=== PATIENT | male | born 1980 | race Caucasian/White ===

== ENCOUNTER → 2017-10-24 16:17 | Outpatient (CLI) | payer OTHER, SELFPAY ==
--- NOTE | 2017-10-24 16:22 | DI.RAD.S_ITS ---
PROCEDURE: XR CERVICAL SPINE 4V OR 5V INDICATIONS: Cervical spondylosis TECHNIQUE: 5 views of the cervical spine acquired. COMPARISON: None. FINDINGS: Bones: No fractures or dislocations to the T1 level. Oblique images demonstrate mild left C4-C5 and C5-C6 foraminal narrowing. Moderate C5-C6 degenerative changes noted. Mild C6-C7 degenerative changes. Mild bilateral C4-C5 uncovertebral joint hypertrophy. Moderate bilateral C5-C6 uncovertebral joint hypertrophy. Soft tissues: No prevertebral soft tissue swelling. IMPRESSION: 1. C5-C6 and C6-C7 degenerative disc disease. 2. C4-C5 and C5-C6 uncovertebral joint hypertrophy. Dictated by: Teresa Beckford MD, PhD on 10/24/2017 at 18:00 Approved by: Teresa Beckford MD, PhD on 10/24/2017 at 18:02
== END ==
PROVIDERS: PCP Family Medicine; Visit Provider Physical Medicine & Rehabilitation
DX: M47.812 Spondylosis without myelopathy or radiculopathy, cervical region (principal); M50.322 Other cervical disc degeneration at C5-C6 level
CPT/HCPCS: 72050

== ENCOUNTER 2017-12-24 07:23 | Outpatient (CLI) | payer OTHER, SELFPAY ==
[2017-12-24] VITALS (8 sets, daily range): BP systolic 123–153; BP diastolic 76–96; PULSE 67–76; RESP 16–18; TEMP 36.1; O2SAT 96–99
--- NOTE | 2017-12-24 07:24 | DI.RAD.S_ITS ---
PROCEDURE: PAIN C/T FACET INJ/BLK 1ST L INDICATIONS: Cervical spondylosis FINDINGS: Fluoroscopic spot filming was performed to verify placement of spinal needles at the right C5-C6 and C6-C7 level(s), as labeled on the films. Appropriate location(s) of the needle tip(s) was confirmed by injection of iodinated contrast. Dictated by: Andry Parker M.D. on 12/24/2017 at 14:27 Approved by: Andry Parker M.D. on 12/24/2017 at 14:28
--- NOTE | 2017-12-24 08:11 | PM.PROC.1 ---
Procedures Date/Time Date of procedure: 12/24/17 Time of procedure: 08:48 General Procedure description: PREOP DIAGNOSIS 1. FACET ARTHROPATHY 2. AXIAL NECK PAIN POST OP DIAGNOSIS 1. FACET ARTHROPATHY 2. AXIAL NECK PAIN PROCEDURES 1. FLUOROSCOPICALLY GUIDED, CONTRAST-CONTROLLED RIGHT C5/6 AND C6/7 FACET JOINT INJECTIONS WITH CONSCIOUS SEDATION. PHYSICIAN: DO JAYCEE Sandoval Brittany is referred by Dr. Buckley for treatment of Axial Neck Pain DESCRIPTION OF PROCEDURE Fluoroscopically guided, contrast-controlled right C5/6 and C6/7 facet joint injections with conscious sedation. Following denial of allergy and review of potential side effects and complications, including, but not necessarily limited to, infection, allergic reaction, local tissue breakdown, stroke, temporary or permanent nerve injury and paralysis, the patient indicated that the patient understood and agreed to proceed. An informed consent document was signed by the patient, witnessed by a nurse, and placed in the patient's chart. Additionally, other treatment options including medications, modalities, and physical therapy were reviewed with the patient. After review of previous anaesthesic history and IV conscious sedation the patient was deemed safe to proceed with todays procedure with IV conscious sedation as ASA class II designation. Safety time-out was performed to confirm patient ID, procedure to be performed and site of procedure. IV sedation was accomplished with a combination of 4mg was administered by the RN after DO order, titrated to patient comfort during the course of the procedure while the patient remained responsive to all verbal commands In the prone position, following sterile prep and drape of the cervical spine region, the posterior aspect of the right C5/6 and C6/7 facet joints were identified fluoroscopically. The skin was anesthetized via a 25-gauge 1.5-inch needle with 1% lidocaine solution into the corresponding facet joints. At this point, a 25-gauge 2.5-inch spinal needle was atraumatically introduced and advanced under fluoroscopic guidance into the corresponding facet joints. Following negative aspiration, injections of approximately 0.2-cc of Isovue 200 confirmed interarticular placement without vascular uptake. At this point, a total of 1 cc including 0.5 cc or 5 mg of dexamethasone combined with 0.5 cc of 1% lidocaine solution was injected without complication into each of the corresponding facet joints. The procedure tolerated the procedure well without signs or symptoms of complications prior to transfer to the recovery area continued monitoring without incident. The patient was then transferred to the recovery area where they were observed for an appropriate period of time after the injection. The patient reported a VAS score of 7 prior to the procedure and a post-procedure VAS of 0. Total Fluoroscopy Time: 20.5 seconds Total Conscious Sedation Time: 24 min POST OP INSTRUCTIONS They were provided a Pain Log to continue to record their response to the target-specific procedure prior to their follow-up visit with their referring physician. Additionally, specific post-injection care instructions and a contact number to our office were provided if concerns arise regarding possible complications associated with the procedure are suspected. Tyler Xie, Complications: none
[2017-12-24] MEDS: MIDAZOLAM 5 MG/5 ML VIAL IV (08:32)
[2017-12-24] MEDS: BUPIVACAINE 0.5% (PF) VIAL 2 ML INJ (08:38)
[2017-12-24] MEDS: IOPAMIDOL 15 ML VIAL 3 ML INJ (08:38)
[2017-12-24] MEDS: DEXAMETHASONE 10 MG/ML VIAL 20 MG INJ (08:39)
--- NOTE | 2017-12-24 08:42 | PC.NURSE ---
ASSISTING PT OFF PROC TABLE TO POST OP AREA IN WHEELCHAIR. PT IN STABLE CONDITION
--- NOTE | 2017-12-24 08:51 | P.PCN_ITS ---
Procedures Date/Time Date of procedure: 12/24/17 Time of procedure: 08:48 General Procedure description: PREOP DIAGNOSIS 1. FACET ARTHROPATHY 2. AXIAL NECK PAIN POST OP DIAGNOSIS 1. FACET ARTHROPATHY 2. AXIAL NECK PAIN PROCEDURES 1. FLUOROSCOPICALLY GUIDED, CONTRAST-CONTROLLED RIGHT C5/6 AND C6/7 FACET JOINT INJECTIONS WITH CONSCIOUS SEDATION. PHYSICIAN: DO JAYCEE Sandoval Brittany is referred by Dr. Buckley for treatment of Axial Neck Pain DESCRIPTION OF PROCEDURE Fluoroscopically guided, contrast-controlled right C5/6 and C6/7 facet joint injections with conscious sedation. Following denial of allergy and review of potential side effects and complications, including, but not necessarily limited to, infection, allergic reaction, local tissue breakdown, stroke, temporary or permanent nerve injury and paralysis, the patient indicated that the patient understood and agreed to proceed. An informed consent document was signed by the patient, witnessed by a nurse, and placed in the patient's chart. Additionally, other treatment options including medications, modalities, and physical therapy were reviewed with the patient. After review of previous anaesthesic history and IV conscious sedation the patient was deemed safe to proceed with todays procedure with IV conscious sedation as ASA class II designation. Safety time-out was performed to confirm patient ID, procedure to be performed and site of procedure. IV sedation was accomplished with a combination of 4mg was administered by the RN after DO order , titrated to patient comfort during the course of the procedure while the patient remained responsive to all verbal commands In the prone position, following sterile prep and drape of the cervical spine region, the posterior aspect of the right C5/6 and C6/7 facet joints were identified fluoroscopically. The skin was anesthetized via a 25-gauge 1.5-inch needle with 1% lidocaine solution into the corresponding facet joints. At this point, a 25-gauge 2.5-inch spinal needle was atraumatically introduced and advanced under fluoroscopic guidance into the corresponding facet joints. Following negative aspiration, injections of approximately 0.2-cc of Isovue 200 confirmed interarticular placement without vascular uptake. At this point, a total of 1 cc including 0.5 cc or 5 mg of dexamethasone combined with 0.5 cc of 1% lidocaine solution was injected without complication into each of the corresponding facet joints. The procedure tolerated the procedure well without signs or symptoms of complications prior to transfer to the recovery area continued monitoring without incident. The patient was then transferred to the recovery area where they were observed for an appropriate period of time after the injection. The patient reported a VAS score of 7 prior to the procedure and a post- procedure VAS of 0. Total Fluoroscopy Time: 20.5 seconds Total Conscious Sedation Time: 24 min POST OP INSTRUCTIONS They were provided a Pain Log to continue to record their response to the target -specific procedure prior to their follow-up visit with their referring physician. Additionally, specific post-injection care instructions and a contact number to our office were provided if concerns arise regarding possible complications associated with the procedure are suspected. Tyler Xie, Complications: none
--- NOTE | 2017-12-24 08:55 | PC.NURSE ---
received pt from Janelle ZAMAN post procedure, pt alert able to transfer self from w/c to chair. Resumed monitoring.
== END 2017-12-24 09:37 ==
LOC: RAD 07:24
PROVIDERS: PCP Family Medicine; Visit Provider Physical Medicine & Rehabilitation
DX: M47.812 Spondylosis without myelopathy or radiculopathy, cervical region (principal); M54.2 Cervicalgia
CPT/HCPCS: 64490; 64491; 99152; J1100; J2250

== ENCOUNTER → 2020-06-09 09:51 | Outpatient (CLI) | payer OTHER, SELFPAY ==
--- NOTE | 2020-06-09 09:54 | DI.RAD.S_ITS ---
PROCEDURE: XR LUMBAR SPINE MIN 4V INDICATIONS: back pain TECHNIQUE: 5 views of the lumbar spine acquired, including flexion and extension views. COMPARISON: None. FINDINGS: Bones: 5 nonrib-bearing vertebrae are present. There is normal bony alignment. No vertebral body compression fractures. No suspicious bony lesions. Soft tissues: Overlying bowel gas pattern is normal. No suspicious soft tissue calcifications. Flexion/extension: There is normal range of motion, with preserved normal alignment. IMPRESSION: Normal lumbar spine. If pain persists, consider MRI. Dictated by: Glenn Connell M.D. on 06/09/2020 at 10:25 Approved by: Glenn Connell M.D. on 06/09/2020 at 10:27
== END ==
PROVIDERS: PCP Family Medicine; Referring Provider Physical Medicine & Rehabilitation; Visit Provider Physical Medicine & Rehabilitation
DX: M51.26 Other intervertebral disc displacement, lumbar region (principal)
CPT/HCPCS: 72110

== ENCOUNTER → 2020-08-24 06:31 | Outpatient (CLI) | payer OTHER, SELFPAY ==
--- NOTE | 2020-08-24 06:31 | DI.MRI.S_ITS ---
PROCEDURE: MR LUMBAR SPINE WO CON INDICATIONS: BACK PAIN TECHNIQUE: Noncontrast sagittal T1 spin echo and T2 fast echo, sagittal STIR, axial T1 and T2 fast spin echo through the lumbar spine. In cases with scoliosis, additional coronal T2 fast spin echo may be performed. COMPARISON: None. FINDINGS: Image quality: Excellent. Alignment and Curvature: There is normal bony alignment. Bone Marrow: Marrow is of normal overall signal. No acute vertebral body compression fractures. Spinal Cord: Conus medullaris terminates at the L1 level. Visualized cord demonstrates normal signal and size. Paraspinous Soft Tissues: No paravertebral masses. T12-L1: Normal appearance. L1-L2: Normal appearance. L2-L3: Normal appearance. L3-L4: Mild degenerative disc height reduction and desiccation. There is an asymmetric posterolateral disc bulge/protrusion seen on the right, at the external os of the neural foramen, series 5, image 21. Facet osteoarthritis is mild, slightly greater on the right than the left, and this results in asymmetric foraminal stenosis with likelihood of impingement on the course of the right L3 nerve root at this level.. L4-L5: Mild degenerative disc height reduction, slight posterior disc bulge but no appreciable spinal or foraminal stenosis L5-S1: Normal appearance. IMPRESSION: A disc herniation is not found. At L3-4 and L4-5 there is mild degenerative disc height reduction and desiccation but at L3-L4 there is an asymmetric posterolateral disc bulge/protrusion on the right combining with mild asymmetric right greater than left facet osteoarthritis to produce focal impingement on the course of the right L3 nerve root. Dictated by: Mehdi Angel M.D. on 08/24/2020 at 8:36 Approved by: Mehdi Angel M.D. on 08/24/2020 at 8:40
== END ==
PROVIDERS: PCP Family Medicine; Referring Provider Physical Medicine & Rehabilitation; Visit Provider Physical Medicine & Rehabilitation
DX: M51.26 Other intervertebral disc displacement, lumbar region (principal); M47.816 Spondylosis without myelopathy or radiculopathy, lumbar region
CPT/HCPCS: 72148

== ENCOUNTER → 2020-09-12 07:59 | Outpatient (CLI) | payer OTHER, SELFPAY ==
[2020-09-12 12:56] LABS: COVID19 -Nasal RAPID Negative (Negative)
== END ==
PROVIDERS: PCP Family Medicine; Visit Provider Physical Medicine & Rehabilitation
DX: Z20.822 Contact with and (suspected) exposure to COVID-19 (principal)
CPT/HCPCS: 87635; C9803

== ENCOUNTER 2020-09-14 08:22 | Outpatient (CLI) | payer OTHER, SELFPAY ==
[2020-09-14] VITALS (8 sets, daily range): BP systolic 128–155; BP diastolic 71–92; PULSE 68–76; RESP 10–19; TEMP 36.3; O2SAT 94–98
--- NOTE | 2020-09-14 08:24 | DI.RAD.S_ITS ---
PROCEDURE: PAIN L/S TRANSFORAMINAL INJECT INDICATIONS: SPONDYLOSIS COMPARISON: [facility], MR, MR LUMBAR SPINE WO CON, 08/24/2020, 7:03. [facility], CR, XR LUMBAR SPINE MIN 4V, 06/09/2020, 9:53. XA, PAIN C/T FACET INJ/BLK 1ST L, 12/24/2017, 8:39. FINDINGS: Fluoroscopic spot filming was performed to verify placement of spinal needles at the left L3-L4 level(s), as labeled on the films. Appropriate location(s) of the needle tip(s) was confirmed by injection of iodinated contrast. IMPRESSION: Fluoroscopy for pain management. Dictated by: Patience Melendez M.D. on 09/14/2020 at 10:03 Approved by: Patience Melendez M.D. on 09/14/2020 at 10:14
[2020-09-14] MEDS: fentaNYL 100 MCG/2 ML INJ 50 MCG IV (09:10)
[2020-09-14] MEDS: MIDAZOLAM 5 MG/5 ML VIAL IV (09:10)
[2020-09-14] MEDS: IOPAMIDOL 15 ML VIAL 3 ML INJ (09:14)
[2020-09-14] MEDS: BUPIVACAINE 0.25% (PF) VIAL 2 ML INJ (09:15)
[2020-09-14] MEDS: DEXAMETHASONE 10 MG/ML VIAL 20 MG INJ (09:15)
[2020-09-14] MEDS: BETAMETHASONE 30 MG/5 ML MDV 6 MG INJ (09:15)
--- NOTE | 2020-09-14 09:24 | P.PCN_ITS ---
Date/Time/Diagnoses Date of procedure: 09/14/20 Time of procedure: 09:24 Pre-procedure diagnosis: 1. FORAMINAL STENOSIS WITH LE SYMPTOMS Post-procedure diagnosis: same Procedure Notes Procedure: 1. FLUOROSCOPICALLY GUIDED CONTRAST CONTROLLED TRANSFORAMINAL EPIDURAL STEROID INJECTION - LEFT L3/4 TFESI Indications: Brittany is referred by Dr. Buckley for treatment of Foraminal Stenosis with left LE Symptoms Physician: Tyler Xie Total Fluoroscopy time (seconds): 6 Total sedation minutes: 10 Complications: none Procedure in detail & Post-procedure care: FINDINGS Foraminal Nerve Root Compression secondary to disc disease and facet hypertrophy DESCRIPTION OF PROCEDURE Following review of allergy and review of potential side effects and complications, including, but not necessarily limited to, infection, allergic reaction, local tissue breakdown, stroke, temporary or permanent nerve injury, paralysis, and possible , the patient indicated that the patient understood and agreed to proceed. An informed consent document was signed by the patient, witnessed by a nurse, and placed in the patient's chart. Additionally, other treatment options including medications, modalities, and physical therapy were reviewed with the patient. After review of previous anaesthesic history and IV conscious sedation the patient was deemed safe to proceed with today?s procedure with IV conscious sedation as ASA class II designation. Safety time-out was performed to confirm patient ID, procedure to be performed and site of procedure. IV sedation was accomplished with a combination of 2mg of Versed and 50mcg of Fentanyl was administered by the RN after DO order, titrated to patient comfort during the course of the procedure while the patient remained responsive to all verbal comm ands In the prone position following sterile prep and drape of the lumbar region, the left L3/4 posterior neuroforamen was identified fluoroscopically. The skin was anesthetized via a 25-gauge 1.5-inch needle with 1% lidocaine solution. At this point, a 25-gauge 3.5-inch spinal needle was atraumatically introduced and advanced under fluoroscopic guidance through the posterior left L3/4 neurofor amen to approximately the anterior aspect of the canal. Depth was confirmed on lateral view. Following negative aspiration, injection of approximately 1.5 cc of Isovue 200 under live fluoroscopy in the AP view confirmed excellent flow along the nerve root, into the epidural space without vascular or intrathecal uptake observed Radiological data, including multiple fluoroscopic views of the lumbosacral spine, reveal a spinal needle at the left L3/4 posterior neuroforamen. Subsequent views show flow of contrast material flowing superiorly and inferiorly along the nerve root confirming epidural flow. Subsequently, a test dose of 1.5cc of 1% lidocaine solution was administered and patient was observed for two minutes for signs or symptoms of complications, including abdominal pain, shortness of breath, bilateral upper or lower extremity weakness, nausea and vomiting, prior to steroid injection. At this point, a total of 3cc or 20mg of dexamethasone and 6mg betamethasone was injec kareem without incident. The patient tolerated the procedure well without signs or symptoms of complications prior to transfer to the recovery area continued monitoring without incident. The patient was then transferred to the recovery area where they were observed for an appropriate time after the injection. The patient reported a VAS score of 7 prior to the procedure and a post-procedure VAS of 0. POST OP INSTRUCTIONS The patient was provided a Pain Log to continue to record their response to the target-specific procedure prior to follow-up visit with their referring physician. Additionally, specific post-injection care instructions and a contact number to our office were provided if concerns arise regarding possible complications associated with the procedure are suspected.
== END 2020-09-14 09:42 | disposition home or self-care (01) ==
LOC: RAD 08:23
PROVIDERS: PCP Family Medicine; Referring Provider Physical Medicine & Rehabilitation; Visit Provider Physical Medicine & Rehabilitation
DX: M48.061 Spinal stenosis, lumbar region without neurogenic claudication (principal); M51.16 Intervertebral disc disorders with radiculopathy, lumbar region
CPT/HCPCS: 64483; 99152; J0702; J1100; J2250; J3010

== ENCOUNTER 2020-12-28 08:15 | Outpatient (CLI) | payer OTHER, SELFPAY ==
[2020-12-28] VITALS (8 sets, daily range): BP systolic 124–140; BP diastolic 74–93; PULSE 61–70; RESP 13–19; TEMP 36.6; O2SAT 95–98
--- NOTE | 2020-12-28 08:15 | DI.RAD.S_ITS ---
PROCEDURE: PAIN L/SI FACET INJ/BLK 1STL INDICATIONS: SPONDYLOSIS COMPARISON: [facility], , PAIN L/S TRANSFORAMINAL INJECT, 09/14/2020, 9:16. FINDINGS: Fluoroscopic spot filming was performed to verify placement of spinal needles on the left at the L3-L4 and L4-L5 level(s), as labeled on the films. Appropriate location(s) of the needle tip(s) was confirmed by injection of iodinated contrast. IMPRESSION: Intraprocedural examination within normal limits. Dictated by: Stan Brownlee M.D. on 12/28/2020 at 8:46 Approved by: Stan Brownlee M.D. on 12/28/2020 at 8:47
[2020-12-28] MEDS: MIDAZOLAM 5 MG/5 ML VIAL IV (09:07)
[2020-12-28] MEDS: fentaNYL 100 MCG/2 ML INJ 50 MCG IV (09:07)
[2020-12-28] MEDS: IOPAMIDOL 15 ML VIAL 3 ML INJ (09:11)
[2020-12-28] MEDS: BUPIVACAINE 0.5% (PF) VIAL 2 ML INJ (09:12)
[2020-12-28] MEDS: BETAMETHASONE 30 MG/5 ML MDV 12 MG INJ (09:12)
--- NOTE | 2020-12-28 09:25 | P.PCN_ITS ---
Date/Time/Diagnoses Date of procedure: 12/28/20 Time of procedure: 09:25 Pre-procedure diagnosis: 1. FACET ARTHROPATHY, 2. AXIAL LBP, 3. MULTILEVEL DDD Post-procedure diagnosis: same Procedure Notes Procedure: 1. FLUOROSCOPICALLY GUIDED CONTRAST CONTROLLED FACET JOINT INJECTIONS LEFT L3/4, L4/5 Indications: Brittany is referred by Dr. Buckley for treatment of Axial LBP Physician: Tyler Xie Total Fluoroscopy time (seconds): 7 Total sedation minutes: 7 Complications: none Procedure in detail & Post-procedure care: FINDINGS Multilevel Facet Arthropathy with Clinically significant axial LBP DESCRIPTION OF PROCEDURE Fluoroscopically guided, contrast-controlled left L3/4, L4/5 facet joint injections. Following review of allergy and review of potential side effects and c omplications, including, but not necessarily limited to, infection, allergic reaction, local tissue breakdown, stroke, temporary or permanent nerve injury, paralysis, and possible , the patient indicated that the patient understood and agreed to proceed. An informed consent document was signed by the patient, witnessed by a nurse, and placed in the patient's chart. Additionally, other treatment options including medications, modalities, and physical therapy were reviewed with the patient. After review of previous anaesthesic history and IV conscious sedation the patient was deemed safe to proceed with today?s procedure with IV conscious sedation as ASA class II designation. Safety time-out was performed to confirm patient ID, procedure to be performed and site of procedure. IV sedation was accomplished with a combination of 2mg of Versed and 50mcg of Fentanyl administered by the RN after DO order, titrated to patient comfort during the course of the procedure while the patient remained responsive to all verbal commands. In the prone position, following sterile prep and drape of the lumbar region, the posterior aspect of the left L3/4, L4/5 facet joints were identified fluo roscopically. The skin was anesthetized via a 25-gauge 1.5-inch needle with 1% lidocaine solution into the corresponding facet joints. At this point, a 22- gauge 3.5-inch spinal needle was atraumatically introduced and advanced under fluoroscopic guidance into the corresponding facet joints. Following negative aspiration, injections of approximately 0.2cc of Isovue 200 confirmed interarticular placement without vascular uptake. Radiological data, including multiple fluoroscopic views of the lumbosacral spine, reveal a spinal needle at the left L3/4, L4/5 facet joints. Subsequent views show flow of contrast material both superiorly and inferiorly within the joint space without vascular or intrathecal uptake. At this point, a total of 0.5cc including a mixture of 0.25cc Marcaine and 0.25cc betamethasone was injected without complication into each of the corresponding facet joints. The patient tolerated the procedure well without signs or symptoms of complications prior to transfer to the recovery area for further monitoring. The patient was then transferred to the recovery area where they were observed for an appropriate period of time after the injection. The patient reported a VAS score of 7 prior to the procedure and a post-procedure VAS of 0. POSTOP INSTRUCTIONS The patient was provided a Pain Log to continue to record their response to the target-specific procedure prior to follow-up visit with their referring physician. Additionally, specific post-injection care instructions and a contact number to our office were provided if concerns arise regarding possible complications associated with the procedure are suspected.
== END 2020-12-28 09:41 | disposition home or self-care (01) ==
LOC: RAD 08:15
PROVIDERS: PCP Family Medicine; Referring Provider Physical Medicine & Rehabilitation; Visit Provider Physical Medicine & Rehabilitation
DX: M47.816 Spondylosis without myelopathy or radiculopathy, lumbar region (principal); M51.36 Other intervertebral disc degeneration, lumbar region; M54.59 Other low back pain
CPT/HCPCS: 64493; 64494; J0702; J2250; J3010

== ENCOUNTER → 2022-05-20 17:08 | Outpatient (CLI) | payer OTHER, SELFPAY ==
--- NOTE | 2022-05-20 17:11 | DI.RAD.S_ITS ---
PROCEDURE: XR WRIST RT MIN 3V INDICATIONS: Right wrist pain, extruding press operator TECHNIQUE: 3 views of the wrist were acquired. COMPARISON: None. FINDINGS: Bones: No fractures or dislocations. No suspicious bony lesions. Soft tissues: No suspicious soft tissue calcifications. IMPRESSION: No visualized acute fracture or dislocation. However, if clinical concern and/or pain persist, short interval imaging followup in 7-10 days is recommended, as occult injury cannot be definitively excluded. Dictated by: Maryse Tai M.D. on 05/21/2022 at 11:06 Approved by: Maryse Tai M.D. on 05/21/2022 at 11:06
== END ==
PROVIDERS: PCP Family Medicine; Referring Provider Physical Medicine & Rehabilitation; Visit Provider Physical Medicine & Rehabilitation
DX: M25.531 Pain in right wrist (principal); S63.501A Unspecified sprain of right wrist, initial encounter
CPT/HCPCS: 73100

== ENCOUNTER 2022-06-06 12:08 | Outpatient (CLI) | payer OTHER, SELFPAY ==
[2022-06-06] VITALS (8 sets, daily range): BP systolic 128–144; BP diastolic 82–98; PULSE 62–75; RESP 12–20; TEMP 36.9; O2SAT 95–99
--- NOTE | 2022-06-06 12:10 | DI.RAD.S_ITS ---
PROCEDURE: PAIN L/SI FACET INJ/BLK 1STL INDICATIONS: SPONDYLOSIS COMPARISON: [facility], , PAIN L/SI FACET INJ/BLK 1STL, 12/28/2020, 9:10. FINDINGS: Fluoroscopic spot filming was performed to verify placement of spinal needles on the left at the L3, L4, and L5 levels, as labeled on the films. Appropriate location of the needle tips was confirmed by injection of iodinated contrast. IMPRESSION: Intraprocedural examination demonstrating appropriate positions of the needles. Dictated by: Stan Brownlee M.D. on 06/06/2022 at 13:34 Approved by: Stan Brownlee M.D. on 06/06/2022 at 13:35
[2022-06-06] MEDS: MIDAZOLAM 2 MG/2 ML VIAL IV (13:21)
[2022-06-06] MEDS: LIDOCAINE 1% (PF) 5 ML INJ (13:25)
[2022-06-06] MEDS: BUPIVACAINE 0.5% (PF) 30 ML VIAL INJ (13:25)
[2022-06-06] MEDS: IOPAMIDOL 15 ML VIAL 3 ML INJ (13:25)
--- NOTE | 2022-06-06 13:38 | P.PCN_ITS ---
Date/Time/Diagnoses Date of procedure: 06/06/22 Time of procedure: 13:38 Pre-procedure diagnosis: FACET ARTHROPATHY Post-procedure diagnosis: same Procedure Notes Procedure: 1. Left L3, L4 AND L5 DIAGNOSTIC MB BLOCKS Indications: Brittany/Dejan is referred by Dr. Buckley for treatment of Bilateral Axial LBP. Physician: Tyler Xie Total Fluoroscopy time (seconds): 6 Total sedation minutes: 12 Complications: none Procedure in detail & Post-procedure care: DESCRIPTION OF PROCEDURE Fluoroscopically guided, contrast-controlled left L3, L4 AND L5 medial branch blocks with 0.5cc of 0.5% Marcaine. Following review of allergy and review of potential side effects and complications, including, but not necessarily limited to, infection, allergic reaction, local tissue breakdown, nerve injury, paralysis, stroke and possible , the patient indicated that the patient understood and agreed to proceed. An informed consent document was signed by the patient, witnessed by a nurse, and placed in the patient's chart. After review of previous anaesthesic history and IV conscious sedation the patient was deemed safe to proceed with today's procedure with IV conscious sedation as ASA class II designation. Safety time-out was performed to confirm patient ID, procedure to be performed and site of procedure. IV sedation was accomplished with a combination of 2mg of Versed was administered by the RN after DO order, titrated to patient comfort during the course of the procedure while the patient remained responsive to all verbal commands In the prone position, following sterile prep and drape of the lumbar region, the left L3, L4 AND L5 anatomical location of the medial branch of the dorsal ramus was identified fluoroscopically. Subsequently an anesthetic skin wheal using 1% lidocaine solution was initiated at each of the anatomical spots. Subsequently then a 22-gauge 3.5-inch spinal needle was atraumatically introduced and advanced under fluoroscopic guidance at each of the corresponding sites at the left L3, L4 and L5 MB. After negative aspiration, 0.2cc of Isovue 200 was injected, confirming placement without vascular or intrathecal uptake. Subsequently then 0.5cc of 0.5% Marcaine solution was injected at each of the corresponding sites at the left L3, L4 and L5 medial branch locations. The patient tolerated the procedure well without signs or symptoms of complications. The patient tolerated the procedure well without signs or symptoms of complications prior to transfer to the recovery area continued monitoring without incident. Post-procedure, the patient was monitored initiating provocative activities to measure the amount of relief from block of the facetogenic pain. The patient reported a VAS of 7 prior to the procedure and a post-procedure VAS of 1. It has been a pleasure to assist in the diagnostic and therapeutic care of your patient. POST OP INSTRUCTIONS The patient was provided with a Pain Log to complete over the next several hours and subsequent days prior to the patient's follow up with the ordering physician. If the patient has category director relief to the solution applied, then they may be a candidate for medial branch rhizotomy. The patient is aware, was provided, once again, with a Pain Log and will follow up with the referring physician for review and clinical correlation
== END 2022-06-06 13:57 | disposition home or self-care (01) ==
PROVIDERS: PCP Family Medicine; Referring Provider Physical Medicine & Rehabilitation; Visit Provider Physical Medicine & Rehabilitation
DX: M47.816 Spondylosis without myelopathy or radiculopathy, lumbar region (principal)
CPT/HCPCS: 64493; 64494; 99152; J2250

== ENCOUNTER 2022-08-06 07:33 | Outpatient (CLI) | payer OTHER, SELFPAY ==
[2022-08-06] VITALS (11 sets, daily range): BP systolic 121–145; BP diastolic 65–87; PULSE 63–74; RESP 12–19; TEMP 36.6; O2SAT 93–98
--- NOTE | 2022-08-06 07:35 | DI.RAD.S_ITS ---
PROCEDURE: PAIN L/S MED/LAT N RFA INDICATIONS: SPONDYLOSIS COMPARISON: None. FINDINGS: Fluoroscopic spot filming was performed to verify placement of spinal needles at the left side of L3, L4 and L5 level(s), as labeled on the films. Appropriate location(s) of the needle tip(s) was confirmed by injection of iodinated contrast. IMPRESSION: Fluoro guidance was provided intraoperatively for left-sided L3, L4 and L5 medial branch block rhizotomy performed by the ordering physician. Dictated by: Sander Lambert M.D. on 08/06/2022 at 10:47 Approved by: Sander Lambert M.D. on 08/06/2022 at 10:48
[2022-08-06] MEDS: MIDAZOLAM 2 MG/2 ML VIAL 4 MG IV (08:23)
[2022-08-06] MEDS: BUPIVACAINE 0.5% (PF) 10 ML VIAL 5 ML INJ (08:24)
[2022-08-06] MEDS: LIDOCAINE 1% 20 ML 5 ML INJ (08:24)
--- NOTE | 2022-08-06 08:47 | P.PCN_ITS ---
Date/Time/Diagnoses Date of procedure: 08/06/22 Time of procedure: 08:47 Pre-procedure diagnosis: 1. RECALCITRANT FACET ARTHROPATHY Post-procedure diagnosis: same Procedure Notes Procedure: 1. Left L3, L4 AND L5 MEDIAL BRANCH RADIOFREQUENCY NEUROTOMY Indications: Brittany/Dejan is referred by Dr. Buckley for treatment of facet arthropathy. Physician: Tyler Xie Total Fluoroscopy time (seconds): 19 Total sedation minutes: 29 Complications: none Procedure in detail & Post-procedure care: DESCRIPTION OF PROCEDURE Left L3, L4 and L5 medial branch radiofrequency neurotomy The patient is well known to this clinic having undergone previous facet injections with good but temporary relief. The patient has experienced appropriate, concordant relief with previous facet and median branch blocks but the patient's pain has been recalcitrant to further conservative measures. Therefore, based upon the patient's relief and persistent symptoms, the patient is considered an appropriate candidate for facet rhizotomy. All of the patient's questions regarding the risks versus benefits of the procedure, including, but not limited to, bleeding, infection, temporary as well as lasting nerve injury, paralysis, stroke, and , as well treatment alternatives were answered to satisfaction. After obtaining informed consent, denial of pertinent drug allergies, as well as being made aware of the potential risks of bleeding, infection, spinal cord trauma, paralysis, temporary and permanent nerve damage, seizure, stroke, and possible , the patient was brought to the fluoroscopy suite and positioned prone on the fluoroscopy table. The lumbar region was prepped with Betadine and covered with a fenestrated drape in the usual sterile fashion. Appropriate monitors applied including pulse oximeter, pulse, and blood pressure for regular monitoring throughout the procedure. After review of previous anaesthesic history and IV conscious sedation the patient was deemed safe to proceed with today's procedure with IV conscious sedation as ASA class II designation. Safety time-out was performed to confirm patient ID, procedure to be performed and site of procedure. IV sedation was accomplished with a combination of 4mg of Versed administered by the RN after DO order, titrated to patient comfort during the course of the procedure while the patient remained responsive to all verbal commands. After local infiltration using 1% lidocaine, under fluoroscopic guidance, a 10- cm RF insulated needle with a 10-mm active tip was positioned parallel to the junction of the left the superior articulating process where the L5 medial branch resides. Needle placement was confirmed with motor stimulation of .5v on the left which produced local stimulation without radicular component. The stimulation was then increased to 2v with, once again, only local multifidus stimulation without radicular component. The needle was then removed and the identical procedure was performed along the length of the left L4 medial branch with motor stimulation at .7v on the left. The identical procedure was once again performed along the length of the left L3 and medial branch with motor stimulation of .5v on the left. The medial branches were then anesthetised with 0.5% marcaine. This was then followed by two discreet lesions performed at 80 degrees Celsius for 90 seconds each. The patient tolerated the procedure well without signs or symptoms of complications prior to transfer to the recovery area continued monitoring without incident. The patient was then transferred to the recovery area where they were observed for an appropriate period of time after the injection. The patient reported a VAS score of 7 prior to the procedure and a post-procedure VAS of 1. POST OP INSTRUCTIONS The patient was provided a Pain Log to continue to record the patient's response to the target-specific procedure prior to the patient's follow-up visit with the referring physician. Additionally, specific post-injection care instructions and a contact number to our office were provided if concerns arise regarding possible complications associated with the procedure are suspected.
== END 2022-08-06 09:03 | disposition home or self-care (01) ==
LOC: RAD 07:34
PROVIDERS: PCP Family Medicine; Referring Provider Physical Medicine & Rehabilitation; Visit Provider Physical Medicine & Rehabilitation
DX: M47.816 Spondylosis without myelopathy or radiculopathy, lumbar region (principal)
CPT/HCPCS: 64635; 64636; 99152; 99153; J2250

== ENCOUNTER 2022-10-03 07:06 | Outpatient (CLI) | payer OTHER, SELFPAY ==
[2022-10-03] VITALS (11 sets, daily range): BP systolic 129–161; BP diastolic 62–90; PULSE 71–84; RESP 14–20; TEMP 36.3; O2SAT 94–97
--- NOTE | 2022-10-03 07:06 | DI.RAD.S_ITS ---
PROCEDURE: PAIN L INTERLAMINAR/CAUDAL INJ INDICATIONS: SPONDYLOSIS COMPARISON: [facility], , PAIN L/S MED/LAT N RFA, 08/06/2022, 8:24. FINDINGS: Fluoroscopic spot filming was performed to verify placement of a spinal needle at the L3-L4 level, as labeled on the films. Appropriate location of the needle tip was confirmed by injection of iodinated contrast. IMPRESSION: Intraprocedural examination within normal limits. Dictated by: Stan Brownlee M.D. on 10/03/2022 at 12:29 Approved by: Stan Brownlee M.D. on 10/03/2022 at 12:29
[2022-10-03] MEDS: MIDAZOLAM 2 MG/2 ML VIAL IV (08:18)
[2022-10-03] MEDS: MIDAZOLAM 2 MG/2 ML VIAL 1 MG IV (08:30)
[2022-10-03] MEDS: DEXAMETHASONE 10 MG/ML VIAL INJ (08:33)
[2022-10-03] MEDS: BUPIVACAINE 0.25% (PF) VIAL 2 ML INJ (08:34)
[2022-10-03] MEDS: BETAMETHASONE 30 MG/5 ML MDV 6 MG INJ (08:34)
[2022-10-03] MEDS: IOPAMIDOL 15 ML VIAL 3 ML INJ (08:34)
--- NOTE | 2022-10-03 08:43 | P.PCN_ITS ---
Date/Time/Diagnoses Date of procedure: 10/03/22 Time of procedure: 08:43 Pre-procedure diagnosis: 1. HNP WITH RADICULAR FEATURES, 2. MULTILEVEL CENTRAL STENOSIS, Post-procedure diagnosis: same Procedure Notes Procedure: 1. FLUOROSCOPICALLY GUIDED CONTRAST CONTROLLED INTERLAMINAR EPIDURAL STEROID INJECTION - L3/4 Indications: Brittany/Dejan is referred by Dr. Buckley for treatment of Bilateral Foraminal Stenosis L>R LE symptoms. Physician: Tyler Xie Total Fluoroscopy time (seconds): 12 Total sedation minutes: 21 Complications: none Procedure in detail & Post-procedure care: FINDINGS Multilevel Central Spinal Stenosis with Nerve Root Compression DESCRIPTION OF PROCEDURE Fluoroscopically guided, contrast-controlled L3/4 translaminar epidural steroid injection. Following review of allergy and review of potential side effects and complications, including, but not necessarily limited to, infection, allergic reaction, local tissue breakdown, temporary as well as permanent nerve injury, paralysis, stroke and possible , the patient indicated that the patient understood and agreed to proceed. An informed consent document was signed by the patient, witnessed by a nurse, and placed in the patient's chart. Additionally, other treatment options including modalities, medications, and physical therapy were reviewed with the patient. After review of previous anaesthesic history and IV conscious sedation the patient was deemed safe to proceed with today?s procedure with IV conscious sedation as ASA class II designation. Safety time-out was performed to confirm patient ID, procedure to be performed and site of procedure. IV sedation was accomplished with a combination of 3mg of Versed was administered by the RN after DO order, titrated to patient comfort during the course of the procedure while the patient remained responsive to all verbal commands. In the prone position, following sterile prep and drape of the lumbar region, the L3/4 translaminar space was identified fluoroscopically. The skin was anesthetized via a 25-gauge, 1.5-inch needle with 1% lidocaine solution. At this point, a 22-gauge short bevel spinal needle was atraumatically introduced and advanced under fluoroscopic guidance into the region of the L3/4 translaminar space. Depth was confirmed on lateral view. Radiological data, including multiple fluoroscopic views of the lumbar spine, reveal a spinal needle at the L3/4 translaminar space. Lateral views then show placement of the needle in the epidural space. Subsequent views show contrast material flowing superiorly and inferiorly in the epidural space. No vascular or intrathecal uptake is observed. At this point, using loss of resistance technique with saline and air, the epidural space was entered. This was confirmed following negative aspiration with injection of approximately 1.5 cc of Isovue 200, showing excellent epidural flow without vascular or intrathecal uptake. At this point, 1cc of 1% lidocaine solution combined with 2cc or 10mg of dexamethasone and 6mg of betamethasone was injected without incident. The patient tolerated the procedure well without signs or symptoms of complicat ions prior to transfer to the recovery area continued monitoring without incident. The patient was then transferred to the recovery area where they were observed for an appropriate period of time after the injection. The patient reported a VAS score of 7 prior to the procedure and a post- procedure VAS of 1. POST OP INSTRUCTIONS The patient was provided a Pain Log to continue to record their response to the target-specific procedure prior to follow-up visit with their referring physician. Additionally, specific post-injection care instructions and a contact number to our office were provided if concerns arise regarding possible complications associated with the procedure are suspected.
== END 2022-10-03 09:05 | disposition home or self-care (01) ==
LOC: RAD 07:06
PROVIDERS: PCP Family Medicine; Referring Provider Physical Medicine & Rehabilitation; Visit Provider Physical Medicine & Rehabilitation
DX: M51.16 Intervertebral disc disorders with radiculopathy, lumbar region (principal); M48.061 Spinal stenosis, lumbar region without neurogenic claudication
CPT/HCPCS: 62323; 99152; J0702; J1100; J2250; J3490

== ENCOUNTER → 2023-05-16 12:44 | Outpatient (CLI) | payer OTHER, SELFPAY ==
--- NOTE | 2023-05-16 12:45 | DI.MRI.S_ITS ---
PROCEDURE: MR LUMBAR SPINE WO CON INDICATIONS: LEFT SIDE LOW BACK PAIN TECHNIQUE: Noncontrast sagittal T1 spin echo and T2 fast echo, sagittal STIR, and T2 fast spin echo through the lumbar spine. In cases with scoliosis, additional coronal T2 fast spin echo may be performed. COMPARISON: [facility], MR, MR LUMBAR SPINE WO CON, 08/24/2020, 7:03. FINDINGS: Image quality: Excellent. Alignment and Curvature: There is normal bony alignment. Bone Marrow: Marrow is of normal overall signal. No acute vertebral body compression fractures. Spinal Cord: Conus medullaris terminates at the L1 level. Visualized cord demonstrates normal signal and size. Paraspinous Soft Tissues: No paravertebral masses. T12-L1: Normal appearance. L1-L2: Normal appearance. L2-L3: Mild facet hypertrophy. Borderline canal stenosis. No significant foraminal stenosis. L3-L4: Progressive findings. Short pedicles. Increased disc height loss. Diffuse disc bulge is increased, eccentric to the right. Facet hypertrophy. Moderate canal stenosis. Moderate to severe right foraminal narrowing with a degree of right foraminal L3 nerve root impingement far laterally. This is progressed. L4-L5: Progressive findings. Short pedicles. Interval development of mild disc height loss. Posterior annulus tear plus disc bulge, as before. Facet hypertrophy. Increase in canal stenosis, moderate. No significant foraminal stenosis. L5-S1: Facet hypertrophy. No canal stenosis or foraminal stenosis. IMPRESSION: 1. 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 Additionally, there is multilevel facet arthropathy. 2. Progression at L3-L4 and L4-L5. 3. At L3-L4, there is increased moderate canal stenosis and increased, moderate to severe right foraminal narrowing with a degree of right foraminal L3 nerve root impingement far laterally. 4. At L4-L5, there is increased canal stenosis, moderate. Dictated by: Broderick Browne M.D. on 05/16/2023 at 17:28 Approved by: Broderick Browne M.D. on 05/16/2023 at 17:35
== END ==
PROVIDERS: PCP Family Medicine; Referring Provider Physical Medicine & Rehabilitation; Visit Provider Physical Medicine & Rehabilitation
DX: M47.816 Spondylosis without myelopathy or radiculopathy, lumbar region (principal); M47.817 Spondylosis without myelopathy or radiculopathy, lumbosacral region; M51.26 Other intervertebral disc displacement, lumbar region; M48.061 Spinal stenosis, lumbar region without neurogenic claudication
CPT/HCPCS: 72148

== ENCOUNTER 2023-07-10 07:38 | Outpatient (CLI) | payer OTHER, SELFPAY ==
[2023-07-10] VITALS (9 sets, daily range): BP systolic 134–152; BP diastolic 78–86; PULSE 77–87; RESP 13–18; TEMP 36.9; O2SAT 93–98
--- NOTE | 2023-07-10 08:00 | DI.RAD.S_ITS ---
PROCEDURE: PAIN L/S TRANSFORAM INJECT STEVEN COMPARISON: None. INDICATIONS: Bilateral L4-5 transforaminal CK Technique: 6 intraoperative fluoroscopic images of lumbar spine were obtained. FINDINGS: Intraoperative fluoroscopic images show injection needle placed dorsally at L4-5 level as indicated on the images. Small amount of contrast are seen near the tip of the needle. IMPRESSION: Fluoro guidance was provided intraoperatively for bilateral L4-5 transforaminal CK performed by ordering physician. Dictated by: Sander Lambert M.D. on 07/10/2023 at 11:33 Approved by: Sander Lambert M.D. on 07/10/2023 at 11:36
[2023-07-10] MEDS: fentaNYL 100 MCG/2 ML INJ 50 MCG IV (08:06)
[2023-07-10] MEDS: MIDAZOLAM 2 MG/2 ML VIAL IV (08:06)
[2023-07-10] MEDS: iopamidoL 15 ML VIAL 3 ML INJ (08:19)
[2023-07-10] MEDS: BETAMETHASONE 30 MG/5 ML MDV 6 MG INJ (08:20)
[2023-07-10] MEDS: BUPIVACAINE 0.25% (PF) VIAL 2 ML INJ (08:20)
[2023-07-10] MEDS: DEXAMETHASONE 10 MG/ML VIAL 20 MG INJ (08:21)
--- NOTE | 2023-07-10 08:39 | P.PCN_ITS ---
Date/Time/Diagnoses Date of procedure: 07/10/23 Time of procedure: 08:39 Pre-procedure diagnosis: 1. FORAMINAL STENOSIS WITH LE SYMPTOMS Procedure Notes Procedure: 1. FLUOROSCOPICALLY GUIDED CONTRAST CONTROLLED TRANSFORAMINAL EPIDURAL STEROID INJECTION - BILATERAL L4/5 TFESI Indications: Brittany is referred by Dr. Buckley for treatment of Foraminal Stenosis with bilateral LE Symptoms Physician: Tyler Xie Total Fluoroscopy time (seconds): 17 Total sedation minutes: 23 Complications: none Procedure in detail & Post-procedure care: FINDINGS Foraminal Nerve Root Compression secondary to disc disease and facet hypertrophy DESCRIPTION OF PROCEDURE Following review of allergy and review of potential side effects and complications, including, but not necessarily limited to, infection, allergic reaction, local tissue breakdown, stroke, temporary or permanent nerve injury, paralysis, and possible , the patient indicated that the patient understood and agreed to proceed. An informed consent document was signed by the patient, witnessed by a nurse, and placed in the patient's chart. Additionally, other treatment options including medications, modalities, and physical therapy were reviewed with the patient. After review of previous anaesthesic history and IV conscious sedation the patient was deemed safe to proceed with today?s procedure with IV conscious sedation as ASA class II designation. Safety time-out was performed to confirm patient ID, procedure to be performed and site of procedure. IV sedation was accomplished with a combination of 2mg of Versed and 50mcg of Fentanyl was administered by the RN after DO order, titrated to patient comfort during the course of the procedure while the patient remained responsive to all verbal commands In the prone position following sterile prep and drape of the lumbar region, the right L4/5 posterior neuroforamen was identified fluoroscopically. The skin was anesthetized via a 25-gauge 1.5-inch needle with 1% lidocaine solution. At this point, a 25-gauge 3.5-inch spinal needle was atraumatically introduced and advanced under fluoroscopic guidance through the posterior right L4/5 neuroforamen to approximately the anterior aspect of the canal. Depth was confirmed on lateral view. Following negative aspiration, injection of approximately 1.5cc of Isovue 200 under live fluoroscopy in the AP view confirmed excellent flow along the nerve root, into the epidural space without vascular or intrathecal uptake observed Radiological data, including multiple fluoroscopic views of the lumbosacral spine, reveal a spinal needle at the right L4/5 posterior neuroforamen. Subsequent views show flow of contrast material flowing superiorly and inferiorly along the nerve root confirming epidural flow. Subsequently, a test dose of 1.5cc of 1% lidocaine solution was administered and patient was observed for two minutes for signs or symptoms of complications, including abdominal pain, shortness of breath, bilateral upper or lower extremity weakness, nausea and vomiting, prior to steroid injection. At this point, a total of 2cc or 10mg of dexamethasone and 6mg betamethasone was injected without incident. Attention was then refocused to the left L4/5 level where the identical procedure was replicated. The procedure tolerated the procedure well without signs or symptoms of complications prior to transfer to the recovery area continued monitoring witho ut incident. The patient was then transferred to the recovery area where they were observed for an appropriate time after the injection. The patient reported a VAS score of 7 prior to the procedure and a post-procedure VAS of 0. POST OP INSTRUCTIONS The patient was provided a Pain Log to continue to record their response to the target-specific procedure prior to follow-up visit with their referring physician. Additionally, specific post-injection care instructions and a contact number to our office were provided if concerns arise regarding possible complications associated with the procedure are suspected.
== END 2023-07-10 08:47 | disposition home or self-care (01) ==
PROVIDERS: PCP Family Medicine; Referring Provider Physical Medicine & Rehabilitation; Visit Provider Physical Medicine & Rehabilitation
DX: M48.061 Spinal stenosis, lumbar region without neurogenic claudication (principal); M51.16 Intervertebral disc disorders with radiculopathy, lumbar region; M47.26 Other spondylosis with radiculopathy, lumbar region
CPT/HCPCS: 64483; 99152; 99153; J0702; J1100; J2250; J3010; J3490

== ENCOUNTER 2023-08-12 08:16 | Outpatient (CLI) | payer OTHER, SELFPAY ==
[2023-08-12] VITALS (10 sets, daily range): BP systolic 126–142; BP diastolic 75–88; PULSE 68–81; RESP 11–98; TEMP 36.6; O2SAT 93–98
--- NOTE | 2023-08-12 08:45 | DI.RAD.S_ITS ---
PROCEDURE: PAIN L/S TRANSFORAM INJECT STEVEN COMPARISON: [facility], XA, PAIN L/S TRANSFORAM INJECT STEVEN, 07/10/2023, 8:17. INDICATIONS: Bilateral L3-4 transforaminal CK FINDINGS: Intraoperative fluoroscopic images show injection needles placed bilaterally at L3 and L4 levels. IMPRESSION: Fluoro guidance was provided intraoperatively for bilateral L3-4 transforaminal CK performed by ordering physician. Dictated by: Sander Lambert M.D. on 08/12/2023 at 11:24 Approved by: Sander Lambert M.D. on 08/12/2023 at 11:25
[2023-08-12] MEDS: MIDAZOLAM 2 MG/2 ML VIAL 1 MG IV ×2 (09:05→09:18)
[2023-08-12] MEDS: fentaNYL 100 MCG/2 ML INJ 50 MCG IV (09:05)
[2023-08-12] MEDS: iopamidoL 15 ML VIAL 3 ML INJ (09:15)
[2023-08-12] MEDS: DEXAMETHASONE 10 MG/ML VIAL 20 MG INJ (09:16)
[2023-08-12] MEDS: BETAMETHASONE 30 MG/5 ML MDV 12 MG INJ (09:16)
[2023-08-12] MEDS: BUPIVACAINE 0.25% (PF) VIAL 2 ML INJ (09:16)
[2023-08-12] MEDS: LIDOCAINE 1% 20 ML 5 ML INJ (09:16)
--- NOTE | 2023-08-12 09:27 | P.PCN_ITS ---
Date/Time/Diagnoses Date of procedure: 08/12/23 Time of procedure: 09:27 Pre-procedure diagnosis: 1. FORAMINAL STENOSIS WITH LE SYMPTOMS Post-procedure diagnosis: same Procedure Notes Procedure: 1. FLUOROSCOPICALLY GUIDED CONTRAST CONTROLLED TRANSFORAMINAL EPIDURAL STEROID INJECTION - BILATERAL L3/4 TFESI Indications: Brittany is referred by Dr. Buckley for treatment of Foraminal Stenosis with bilateral LE Symptoms Physician: Tyler Xie Total Fluoroscopy time (seconds): 17 Total sedation minutes: 18 Complications: none Procedure in detail & Post-procedure care: FINDINGS Foraminal Nerve Root Compression secondary to disc disease and facet hypertrophy DESCRIPTION OF PROCEDURE Following review of allergy and review of potential side effects and complications, including, but not necessarily limited to, infection, allergic reaction, local tissue breakdown, stroke, temporary or permanent nerve injury, paralysis, and possible , the patient indicated that the patient understood and agreed to proceed. An informed consent document was signed by the patient, witnessed by a nurse, and placed in the patient's chart. Additionally, other treatment options including medications, modalities, and physical therapy were reviewed with the patient. After review of previous anaesthesic history and IV conscious sedation the patient was deemed safe to proceed with today?s procedure with IV conscious sedation as ASA class II designation. Safety time-out was performed to confirm patient ID, procedure to be performed and site of procedure. IV sedation was accomplished with a combination of 2mg of Versed and 50mcg of Fentanyl was administered by the RN after DO order, titrated to patient comfort during the course of the procedure while the patient remained responsive to all verbal commands In the prone position following sterile prep and drape of the lumbar region, the right L3/4 posterior neuroforamen was identified fluoroscopically. The skin was anesthetized via a 25-gauge 1.5-inch needle with 1% lidocaine solution. At this point, a 25-gauge 3.5-inch spinal needle was atraumatically introduced and advanced under fluoroscopic guidance through the posterior right L3/4 neuroforamen to approximately the anterior aspect of the canal. Depth was confirmed on lateral view. Following negative aspiration, injection of approximately 1.5cc of Isovue 200 under live fluoroscopy in the AP view confirme d excellent flow along the nerve root, into the epidural space without vascular or intrathecal uptake observed Radiological data, including multiple fluoroscopic views of the lumbosacral spine, reveal a spinal needle at the right L3/4 posterior neuroforamen. Subsequent views show flow of contrast material flowing superiorly and inferiorly along the nerve root confirming epidural flow. Subsequently, a test dose of 1.5cc of 1% lidocaine solution was administered and patient was observed for two minutes for signs or symptoms of complications, including abdominal pain, shortness of breath, bilateral upper or lower extremity weakness, nausea and vomiting, prior to steroid injection. At this point, a total of 2cc or 10mg of dexamethasone and 6mg betamethasone was injected without incident. Attention was then refocused to the left L3/4 level where the identical procedure was replicated. The procedure tolerated the procedure well without signs or symptoms of complications prior to transfer to the recovery area continued monitoring without incident. The patient was then transferred to the recovery area where they were observed for an appropriate time after the injection. The patient reported a VAS score of 7 prior to the procedure and a post-procedure VAS of 0. POST OP INSTRUCTIONS The patient was provided a Pain Log to continue to record their response to the target-specific procedure prior to follow-up visit with their referring physician. Additionally, specific post-injection care instructions and a contact number to our office were provided if concerns arise regarding possible complications associated with the procedure are suspected.
--- NOTE | 2023-08-13 14:36 | PC.NURSE ---
6103 Patient post-procedural call made. Patient states that he is doing well and has no questions or concerns at this time. Patient advised to call the clinic if anything changes or if he has any questions or concerns.
== END 2023-08-12 09:55 | disposition home or self-care (01) ==
LOC: RAD 08:16
PROVIDERS: PCP Family Medicine; Referring Provider Physical Medicine & Rehabilitation; Visit Provider Physical Medicine & Rehabilitation
DX: M48.061 Spinal stenosis, lumbar region without neurogenic claudication (principal); M51.16 Intervertebral disc disorders with radiculopathy, lumbar region; M47.26 Other spondylosis with radiculopathy, lumbar region
CPT/HCPCS: 64483; 99152; J0702; J1100; J2250; J3010; J3490